=== PATIENT | female | born 1990 | race Caucasian/White ===

== ENCOUNTER 2016-07-17 18:00 | Emergency (ER) | payer BC ==
[~2016-07-17] VITALS: Ht 167.6 cm; Wt 107.9 kg
[~2016-07-17 18:00] MED LIST: Levothroid,Synthroid PO; Motrin PO; Percocet 5/325,Endoc PO
[2016-07-17 18:45] LABS: MCH 29.8 PG (29.0-34.0); MCV 85.1 FL (83-99); MEAN PLAT.VOLUME 10.7 uM^3 (9.5-12.4); PLATELET COUNT 168 K/uL (156-360); RBC DIS.WIDTH-CV 12.5 % (11.8-14.6); RBC DIS.WIDTH-SD 37.6 % (39-53); RED BLOOD COUNT 4.23 M/uL (3.80-5.20)
[2016-07-17 18:54] LABS: CHLORIDE 101 mEq/L (99-109); POTASSIUM 3.9 mEq/L (3.7-5.4); SODIUM 137 mEq/L (136-147)
[2016-07-17 18:56] LABS: GLUCOSE 117 mg/dL (70-99)
[2016-07-17 18:57] LABS: ANION GAP 10 MEQ/L (2-14)
[2016-07-17 19:00] LABS: GFR ESTIMATE (CALCULATED) > 59 mL/min/; UREA NITROGEN (BUN) 9 mg/dL (9-23)
[2016-07-17 20:35] LABS: ADD MIUA? YES; BILIRUBIN SMALL; BLOOD LARGE; COLOR DK YELLOW ((YELLOW)); GLUCOSE (STRIP) NEGATIVE; KETONES TRACE; LEUKOCYTES NEGATIVE; NITRITE NEGATIVE; PH, URINE 6.5 (5-8); PROTEIN (STRIP) 30; SPECIFIC GRAVITY 1.022 (1.000-1.030)
[2016-07-17 21:31] LABS: BACTERIA 1+ /HPF; CASTS NONE SEEN /LPF; CRYSTALS NONE SEEN; EPITHELIAL CELLS 1+ /HPF; MUCUS 2+ /LPF; WHITE BLOOD CELLS 0-5 /HPF (0-5)
[2016-07-17] MEDS ORDERED: LEVAQUIN500 MG PO (21:57)
[2016-07-17] MEDS ORDERED: FLONASE16 G1 BOTH NARES (21:57)
[2016-07-17] MEDS ORDERED: TESSALON PERLE100 MG PO (21:58)
[2016-07-17] MEDS ORDERED: MOTRIN800 MG PO (21:58)
[2016-07-17 22:14] VITALS: BP 124/71
== END 2016-07-17 22:17 | disposition home or self-care (01) ==
LOC: EME 18:00
PROVIDERS: Physician Assistant
DX: J32.9 Chronic sinusitis, unspecified (principal); J18.9 Pneumonia, unspecified organism; J45.909 Unspecified asthma, uncomplicated; E03.9 Hypothyroidism, unspecified
CPT/HCPCS: 71020; 80048; 81003; 85027; 87502; 93005; 99281; 99285